=== PATIENT | female | born 1970 | race African-American/Black ===

== ENCOUNTER 2020-12-07 09:15 | Emergency (ER) | payer OTHER ==
[2020-12-07 09:40] VITALS: BP 151/87; PULSE 82; TEMP 97.7; BMI 30.2
[2020-12-07] MEDS ORDERED: DIPHTH,PERTUSS(ACELL),TET 0.5 ML DISP.SYRIN IM ONE ×2 (10:29→10:32)
== END 2020-12-07 11:01 | disposition home or self-care (01) ==
LOC: JER 09:15
PROC: 3E0234Z Introduction of Serum, Toxoid and Vaccine into Muscle, Percutaneous Approach (ICD-10-PCS; principal; 2020-12-07)
DX: S60.419A Abrasion of unspecified finger, initial encounter (principal); W54.0XXA Bitten by dog, initial encounter; Y93.01 Activity, walking, marching and hiking
CPT/HCPCS: 90715; 99284-25